=== PATIENT | male | born 1975 | race Two or more races ===

== ENCOUNTER 2020-05-10 15:15 | Emergency (ER) | payer OTHER ==
[~2020-05-10] VITALS: Ht 180.3 cm; Wt 72.6 kg
== END 2020-05-10 20:10 | disposition home or self-care (01) ==
LOC: ER 15:15
DX: E11.65 Type 2 diabetes mellitus with hyperglycemia (principal)

== ENCOUNTER 2021-05-04 07:21 | Emergency (ER) | payer OTHER ==
[~2021-05-04] VITALS: Ht 180.3 cm; Wt 77.1 kg
[2021-05-04] MEDS ORDERED: GLIMEPIRIDE2 M1 PO (07:29)
[2021-05-04] MEDS ORDERED: METFORMIN HCL500 M3 (07:29)
[2021-05-04] MEDS ORDERED: ATORVASTATIN CA10 MG PO (07:30)
[2021-05-04] MEDS ORDERED: ENALAPRIL MALE2.5 MG PO (07:30)
== END 2021-05-04 10:28 | disposition home or self-care (01) ==
LOC: ER 07:21
DX: N50.811 Right testicular pain (principal); N50.89 Other specified disorders of the male genital organs